=== PATIENT | female | born 1995 | race Caucasian/White ===

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

== ENCOUNTER 2017-03-16 18:53 | Emergency (ER) | payer BC, OTHER ==
[~2017-03-16] VITALS: Ht 154.9 cm; Wt 49.5 kg
[~2017-03-16 18:53] MED LIST changes: +OXYM0.0592; +VNTHFA/IN INH
[2017-03-16 19:07] VITALS: TEMP 36.8; Ht 154.9 cm; Wt 49.5 kg
[2017-03-16] MEDS ORDERED: BCPILLS PO (19:15)
[2017-03-16] MEDS ORDERED: LORA-741 PO (19:15)
[2017-03-16] MEDS ORDERED: ESCI10TA17 PO (19:15)
[2017-03-16] MEDS ORDERED: ALBUT/IPRATROP 3MG/0.5MG NEB 3 ML VIAL INH STA (19:34)
--- NOTE | 2017-03-16 19:34 | EMERGENCY ROOM VISIT NOTE ---
History Report prepared by Gricelda: Akosua Jalloh Under the Supervision of: Dr. Colette Wolf M.D. First contact with patient: 19:12 Chief Complaint: CONGESTION Stated Complaint: CHEST/SINUS CONGESTION,COUGHING UP MUCAS History of Present Illness The patient is a 21 year old female who presents to the Emergency Room with complaints of worsening sinus and chest congestion beginning three days ago. The patient also reports a cough and left ear pain. The patient states her boss made her leave work to go get checked out. She is unsure if she has had a fever but notes feeling hot over the past 3 days. The patient has a history of asthma. She does not smoke. Source of History: patient Onset: 3 days ago Position: other (generalized) Quality: other (sinus and chest congestion) Timing: worsening Associated Symptoms: + cough, No fevers Review of Systems See HPI for pertinent positives & negatives. A total of 10 systems reviewed and were otherwise negative. Past Medical & Surgical Medical Problems: (1) Asthma Surgical Problems: (1) H/O adenoidectomy (2) History of tonsillectomy Family History No pertinent family history Social History Smoking Status: Never Smoker Smokeless Tobacco Use: No Drug Use: none Marital Status: single Housing Status: lives with family Occupation Status: student Current/Historical Medications Scheduled Control Pills ( Control Pills), 1 TAB PO DAILY Escitalopram (Lexapro), 10 MG PO DAILY Prednisone (Prednisone), 40 MG PO DAILY Scheduled PRN Lorazepam (Ativan), 0.5 MG PO Q6H PRN for Anxiety Allergies Coded Allergies: No Known Allergies (Unverified , 03/16/17) Physical Exam Vital Signs Date Time Temp Pulse Resp B/P (MAP) Pulse Ox O2 Delivery O2 Flow Rate FiO2 03/16/17 20:32 108 20 146/69 96 03/16/17 19:07 36.8 102 18 113/73 98 Room Air Physical Exam Vital signs reviewed. General: Well-appearing female, in no significant distress. HEENT: No scleral icterus, PERRLA, neck supple. Atraumatic. Cardiovascular: Regular rate and rhythm, no extra sounds. Pulmonary: Forced expiratory wheezes. Abdomen: Soft, nontender, nondistended, positive bowel sounds. Musculoskeletal: Atraumatic, no peripheral edema. Neurologic: Patient awake alert and oriented x 3, full strength in all 4 extremities. Cranial nerves 2 through 12 grossly intact. Skin: Warm, dry, no rash Medical Decision & Procedures Medications Administered Medications (Trade) Dose Ordered Sig/Kvng Route Start Time Stop Time Status Last Admin Dose Admin Albuterol/ Ipratropium (Duoneb) 3 ml NOW STAT INH 03/16/17 19:34 03/16/17 19:35 DC 03/16/17 20:03 3 ML Prednisone (PredniSONE TAB) 60 mg NOW STAT PO 03/16/17 19:34 03/16/17 19:35 DC 03/16/17 20:03 60 MG Albuterol (Ventolin Hfa Inhaler) 2 puffs NOW ONCE INH 03/16/17 20:15 03/16/17 20:16 DC 03/16/17 20:16 2 PUFFS ED Course 1925: Past medical records reviewed. The patient was evaluated in room B5. A complete history and physical examination was performed. 1933: Ordered Prednisone 60 mg PO, Duoneb 3 ml INH. 2009: Upon reevaluation, the patient appeared to have improvement of her symptoms. I discussed findings with the patient. She verbalized agreement of the treatment plan. The patient was discharged home. Medical Decision Differential diagnosis: Etiologies such as infections, reactive airway disease, pneumonia, pneumothorax , COPD, CHF, cardiac ischemia, pulmonary embolism, musculoskeletal, gastrointestinal, as well as others were entertained. This patient was evaluated and appeared to be in no significant distress. Physical examination is fairly unrevealing. Patient does have faint expiratory wheezes. She was given a DuoNeb treatment. Patient was given 60 mg oral prednisone. She was discharged with an albuterol inhaler. She'll follow-up with her physician for reevaluation. She will return to the ER for worsening of symptoms or any medical concerns. Medication Reconcilliation Current Medication List: was personally reviewed by me Blood Pressure Screening Patient's blood pressure: Normal blood pressure Impression Primary Impression: Acute wheezy bronchitis Scribe Attestation The scribe's documentation has been prepared under my direction and personally reviewed by me in its entirety. I confirm that the note above accurately reflects all work, treatment, procedures, and medical decision making performed by me. Departure Information Dispostion Home / Self-Care Prescriptions Prednisone (Prednisone) 20 Mg Tab 40 MG PO DAILY, #8 TAB Prov: Colette Wolf M.D. 03/16/17 Referrals No Doctor, Assigned (PCP) Forms HOME CARE DOCUMENTATION FORM, IMPORTANT VISIT INFORMATION Patient Instructions My [facility] Additional Instructions Diagnosis: Bronchitis with wheezing Prednisone 40 mg daily for 4 more days Albuterol 2 puffs every 4 hours as needed for wheezing. Follow-up with your physician for reevaluation this week. Return to the ER for worsening of symptoms or any medical concerns.
[2017-03-16] MEDS ORDERED: PRED20TA PO (20:05)
[2017-03-16] MEDS ORDERED: ALBUTEROL HFA 8 GM INHALER INH ONE (20:15)
[2017-03-16 20:32] VITALS: BP 146/69; PULSE 108; O2SAT 96
== END 2017-03-16 20:20 | disposition home or self-care (01) ==
LOC: C.EDB 18:54
DX: J20.9 Acute bronchitis, unspecified (principal); Z87.09 Personal history of other diseases of the respiratory system; Z79.3 Long term (current) use of hormonal contraceptives

== ENCOUNTER 2017-03-19 13:45 | Emergency (ER) | payer BC, OTHER ==
[~2017-03-19] VITALS: Ht 154.9 cm; Wt 49.0 kg
[~2017-03-19 13:45] MED LIST changes: +BCPILLS PO; -CLR/5 PO; +ESCI10TA17 PO; +LORA-741 PO; -OXYM0.0592; +PRED20TA PO; -VNTHFA/IN INH
[2017-03-19 13:50] VITALS: TEMP 36.6; Ht 154.9 cm; Wt 49.0 kg
--- NOTE | 2017-03-19 14:20 | EMERGENCY ROOM VISIT NOTE ---
ED Visit Note First contact with patient: 13:53 CHIEF COMPLAINT sore throat / HISTORY OF PRESENT ILLNESS: This 20-year-old female presents the ER with chief complaint of sore throat which started yesterday. She states it hurts to swallow foods. The patient denies any fever. The patient does admit to a tender enlarged lymph node in the left side of her neck. The patient states that she was here several days ago for wheezing and cough and was placed on steroids. She is still taking the steroids. She was not placed on any antibiotics. The patient denies any ear pain or pressure or head congestion. She does admit that her chest is feeling much better. She denies any wheezing. REVIEW OF SYSTEMS: 6 system review was performed and was negative unless stated otherwise in history of present illness. PMH: The patient is healthy; tonsillectomy, adenoidectomy, asthma SOCIAL HISTORY: Patient denies any tobacco use and alcohol use. Patient lives with her parents. PHYSICAL EXAM: Vital Signs were reviewed: Temperature 36.6, blood pressure 130/ 81, pulse 94, respiratory rate 16 Reviewed Nurse's notes and agree. Oxygen saturation is 99 % on room air which is normal . GENERAL: 21-year-old female appears in no acute distress. MENTAL STATUS: Alert, oriented, coherent. EARS: Canals clear. TMs good light reflex, no erythema or fluid level noted. NOSE: Nasal mucosa with moderate erythema engorgement. PHARYNX: Moderate erythema, no edema noted. Tonsils are absent. No exudate noted. Airway is adequate. NECK: Supple, enlarged left anterior cervical node noted which is tender to palpation. No posterior nodes noted bilaterally.. LUNGS: Clear to auscultation without wheezes rales or rhonchi. CARDIAC: Regular rate and rhythm without murmur. SKIN: No rashes noted. EMERGENCY COURSE: The patient was evaluated. Rapid strep was negative. Culture is pending. The patient was discharged home in stable condition. DIAGNOSIS: Acute pharyngitis, probably viral Enlarged cervical lymph node DISCHARGE INSTRUCTIONS & TREATMENT: Read the pharyngitis (sore throat) instruction sheet. Call for throat test result tomorrow. Ibuprofen for pain and fever every 6 hours. If the enlarged lymph node has not decreased in size 5-7 days after your symptoms have resolved recommend follow-up with family doctor for further evaluation. Problem List Medical Problems: (1) Asthma Status: Chronic Surgical Problems: (1) H/O adenoidectomy Status: Resolved (2) History of tonsillectomy Status: Resolved Current/Historical Medications Scheduled Control Pills ( Control Pills), 1 TAB PO DAILY Escitalopram (Lexapro), 10 MG PO DAILY Prednisone (Prednisone), 40 MG PO DAILY Scheduled PRN Lorazepam (Ativan), 0.5 MG PO Q6H PRN for Anxiety Allergies Coded Allergies: No Known Allergies (Unverified , 03/19/17) Vital Signs Date Time Temp Pulse Resp B/P (MAP) Pulse Ox O2 Delivery O2 Flow Rate FiO2 03/19/17 13:50 36.6 94 16 130/81 99 Departure Information Referrals Natanael Hill M.D. (PCP) Patient Instructions My [facility]
[2017-03-19 14:33] VITALS: BP 127/70; PULSE 77; O2SAT 98
== END 2017-03-19 14:34 | disposition home or self-care (01) ==
LOC: C.EDB 13:46 → C.EDD 14:34
DX: J02.9 Acute pharyngitis, unspecified (principal); R59.0 Localized enlarged lymph nodes; J45.909 Unspecified asthma, uncomplicated; Z98.890 Other specified postprocedural states; Z79.899 Other long term (current) drug therapy